=== PATIENT | female | born 1965 | race Caucasian/White ===

== ENCOUNTER 2016-05-13 05:31 | Day surgery (SDC) | payer MEDICAID ==
[2016-05-11 09:57] LABS: HEMATOCRIT 36.7 % (36.0-48.0); HEMOGLOBIN 12.4 g/dL (12-16); MCH 35.1 pg (26.0-34.0); MCHC 33.8 g/dL (31.0-37.0); MEAN PLATELET VOLUME 8.9 fL (7.4-10.4); RBC 3.53 10x6/uL (4.00-5.40); RDW 13.6 % (11.5-14.5); WBC 13.3 10x3/uL (4.8-10.8)
[2016-05-11 10:12] LABS: CALC OSMOLALITY 257 mosm/kg (275-300); CALCIUM 9.4 mg/dL (8.5-10.1); CARBON DIOXIDE 29.1 mmol/L (21.0-32.0); CHLORIDE - SERUM 95 mmol/L (98-107); CREATININE - SERUM 0.8 mg/dL (0.6-1.3); GLUCOSE 88 mg/dL (74-106); POTASSIUM - SERUM 4.7 mmol/L (3.5-5.1); SODIUM 129 mmol/L (136-145); UREA NITROGEN 12 mg/dL (7-18); eGFR NON AFRICAN AMERICAN 80 mL/min (90-120)
[~2016-05-13] VITALS: Ht 162.6 cm; Wt 59.0 kg
[~2016-05-13 05:31] MED LIST: AMOXICILLIN500 M1 PO; AMPICILLIN 2 GM/2 G1 IV; BACTRIM DS TABL1 TAB PO; COREG 3.1253.125 MG NG; DILAUDID2 MG PO; ELIQUIS2.5 MG PO; HYDROCODONE-APA1 TAB PO; IBUPROFEN800 MG; IBUPROFEN800 MG PO; INVANZ 1 GM/NS 11 G1 IV; MUPIROCIN22 GM TOPICAL; NAPROSYN500 MG PO; OMEPRAZOLE20 M1 PO; RIFADIN300 MG PO; ULTRAM50 MG PO; ZESTRIL10 MG PO; ZOFRAN4 MG PO; ZOFRAN8 MG PO
[2016-05-13 10:40] VITALS: BP 134/81; Ht 162.6 cm; Wt 59.0 kg
[2016-05-13 11:46] LABS: HCG SERUM NEGATIVE (NEGATIVE)
[2016-05-13] MEDS ORDERED: HYDROCODONE-APA1 TAB PO (14:39)
--- NOTE | 2016-05-13 14:45 | NUR ---
1G VANCOMYCIN INFUSING UPON ARRIVAL TO PACU
--- NOTE | 2016-05-13 16:20 | NUR ---
IV REMOVED WITH TIP INTACT. DISCHARGE INSTRUCTIONS AND RX GIVEN, VOICED UNDERSTANDING. DISCHARGED HOME VIA WC.
--- NOTE | 2016-05-17 18:23 | OP ---
PATIENT NAME: ANNA MARIE HERRERA MEDICAL RECORD: [id number] :61 LOCATION:D.OPS ADMISSION DATE: SURGEON: KATHRYN WYA MD DATE OF OPERATION: 05/13/2016 PREOPERATIVE DIAGNOSIS: Symptomatic hardware of the right clavicle. POSTOPERATIVE DIAGNOSIS: Symptomatic hardware of the right clavicle. PROCEDURE: Removal of symptomatic hardware of the right clavicle. SURGEON: Kathrny Way MD ANESTHESIA: General. INTRAOPERATIVE COMPLICATIONS: None. SUMMARY OF PATHOLOGIC FINDINGS: Essentially none. The clavicle has healed. OPERATIVE SUMMARY IN DETAIL: After obtaining the appropriate preoperative orthopedic surgery consent as well as anesthetic consultation, evaluation and clearance, the patient was brought to the operating room and placed on the table in supine position. After adequate general laryngeal mask was administered. Bump was placed in the left shoulder. Left shoulder and the area of the clavicle was prepped and draped in routine sterile fashion. Incision was made in line with the old incision, taken down to the level of the hardware. This patient had extremely thin skin. Hardware was exposed, screws were serial and sequentially removed followed by removal of the plate. The clavicle was palpated and found to be intact completely. Wound was irrigated and closed with 2-0 Vicryl followed by a running 4-0 Prolene. Sterile dressings were applied. The patient was awakened and taken to the recovery room in stable condition. All final needle and sponge counts were correct. TRANSINT:[id number] Voice Confirmation ID: [id number] DOCUMENT ID: [id number] KATHRYN WAY MD at 1823 CC: [id number] DICTATION DATE: 05/13/16 1433 PORCELAIN MIXER: 05/13/16 1644 [facility] 05/13/16 [place] [id number] [place] [id number]
[2016-06-23] MEDS ORDERED: HYSINGLA ER20 MG PO (12:59)
[2016-06-23] MEDS ORDERED: VIBRAMYCIN 100100 MG PO (13:19)
== END 2016-05-13 16:20 | disposition home or self-care (01) ==
LOC: D.OPS 05:31 → D.PAN 12:30 → D.OPS 15:15
PROVIDERS: Anesthesiology
DX: T84.84XA Pain due to internal orthopedic prosthetic devices, implants and grafts, initial encounter (principal); F17.200 Nicotine dependence, unspecified, uncomplicated; I10 Essential (primary) hypertension; J44.9 Chronic obstructive pulmonary disease, unspecified; K21.9 Gastro-esophageal reflux disease without esophagitis

== ENCOUNTER 2016-06-24 06:25 | Day surgery (SDC) | payer MEDICAID ==
[2016-06-23 13:47] LABS: HEMATOCRIT 35.4 % (36.0-48.0); MCH 34.8 pg (26.0-34.0); MCHC 33.9 g/dL (31.0-37.0); MCV 102.6 fL (80.0-100.0); MEAN PLATELET VOLUME 10.2 fL (7.4-10.4); RBC 3.45 10x6/uL (4.00-5.40); WBC 6.8 10x3/uL (4.8-10.8)
[2016-06-23 14:12] LABS: CALC OSMOLALITY 261 mosm/kg (275-300); CALCIUM 9.3 mg/dL (8.5-10.1); CARBON DIOXIDE 23.4 mmol/L (21.0-32.0); CHLORIDE - SERUM 100 mmol/L (98-107); CREATININE - SERUM 0.5 mg/dL (0.6-1.3); GLUCOSE 99 mg/dL (74-106); POTASSIUM - SERUM 5.1 mmol/L (3.5-5.1); SODIUM 132 mmol/L (136-145); UREA NITROGEN 4 mg/dL (7-18); eGFR NON AFRICAN AMERICAN > 90 mL/min (90-120)
[~2016-06-24] VITALS: Ht 162.6 cm; Wt 58.1 kg
[~2016-06-24 06:25] MED LIST changes: +HYSINGLA ER20 MG PO; +VIBRAMYCIN 100100 MG PO
[2016-06-24 07:21] VITALS: BP 132/78; Ht 162.6 cm; Wt 58.1 kg
--- NOTE | 2016-06-24 09:45 | NUR ---
HX OF BLOOD CLOTS NO SCD USED
--- NOTE | 2016-06-24 10:07 | NUR ---
DR. YUSUF SCRUBS IN
--- NOTE | 2016-06-24 10:19 | NUR ---
PARAMJIT SRUBS OUT
[2016-06-24] MEDS ORDERED: PERCOCET 10/3251 TA1 PO (10:38)
--- NOTE | 2016-06-24 13:43 | NUR ---
IV DC WITH CATHER TIP INTACT
--- NOTE | 2016-06-27 11:01 | OP ---
PATIENT NAME: ANNA MARIE HERRERA MEDICAL RECORD: [id number] :61 LOCATION:[facility] ADMISSION DATE: SURGEON: KATHRYN WAY MD DATE OF OPERATION: 06/24/2016 PREOPERATIVE DIAGNOSIS: Chronic nonunion of the right clavicle, symptomatic, status post operative intervention times 5. POSTOPERATIVE DIAGNOSIS: Chronic nonunion of the right clavicle, symptomatic, status post operative intervention times 5. PROCEDURE: Claviculectomy, right. SURGEON: Kathryn Way MD. BUSINESS PRACTICES SUPERVISOR: Cheng Interiano MD. INTRAOPERATIVE COMPLICATIONS: Sidewall injury to the subclavian vein fixed by Dr. Interiano. ESTIMATED BLOOD LOSS: 200 cc. OPERATIVE SUMMARY IN DETAIL: After obtaining the appropriate preoperative orthopedic surgery consent as well as anesthetic consultation, evaluation and clearance, the patient was brought to the operating room and placed on the operating table in supine position. After general laryngeal mask was administered, the patient was placed in a beach chair position. All pressure points were well padded to include down leg peroneal pad as well as axillary roll. She was held firmly to the operating table using the vacuum pack suction system. Right upper extremity and shoulder were prepped and draped in routine sterile fashion. Previously utilized incision was taken down to reveal the refractured nonunited collarbone that had refractured and that had 2 places that were nonhealed, one appeared to be a refracture and as per our conversation, after multiple operations and a very painful collarbone, it was felt that a claviculectomy was the best. Distal side was dissected out first with little degree of difficulty as was a center portion. Dissection was then carried medially where there were copious amounts of scar tissue. At the medial one-third lateral two-thirds junction, a small sidewall tear was made in the subclavius. Pressure was held here to stop bleeding while the dissection was carried down to just lateral to the sternoclavicular joint, the clavicle was excised at this point for appropriate exposure of the sidewall tear of the subclavius. At this point, Dr. Interiano came in and did a 7-0 running repair for tight seal and the subclavius continued to have good flow. The wound at this point was copiously irrigated and closed in layers with #1 Vicryl to close the platysma, followed 2-0 Vicryl and skin ryan. Sterile dressings were applied. The patient was awakened, taken to recovery room in stable condition. All final needle and sponge counts were correct. TRANSINT:[id number] Voice Confirmation ID: [id number] DOCUMENT ID: [id number] OPERATIVE REPORT [id number] ANNA MARIE HERRERA MD, KATHRYN MORRIS at 1101 CC: [id number] DICTATION DATE: 06/24/16 1041 OPERATIONS OFFICER TRUST DEPARTMENT: 06/24/16 1338 [facility] 06/24/[address] [address]
== END 2016-06-24 14:00 | disposition home or self-care (01) ==
LOC: D.OPS 06:25 → D.PAN 09:00 → D.OPS 12:30 → D.PAN 12:30 → D.OPS 14:00
PROVIDERS: Anesthesiology
DX: M84.411A Pathological fracture, right shoulder, initial encounter for fracture (principal); F17.200 Nicotine dependence, unspecified, uncomplicated; J44.9 Chronic obstructive pulmonary disease, unspecified; K76.0 Fatty (change of) liver, not elsewhere classified; I10 Essential (primary) hypertension; M19.90 Unspecified osteoarthritis, unspecified site; I97.51 Accidental puncture and laceration of a circulatory system organ or structure during a circulatory system procedure; Y65.8 Other specified misadventures during surgical and medical care

== ENCOUNTER 2016-07-03 19:13 | Inpatient (IN) | payer MEDICAID ==
[~2016-07-03] VITALS: Ht 162.6 cm; Wt 59.0 kg
[~2016-07-03 19:13] MED LIST changes: +PERCOCET 10/3251 TA1 PO
[2016-07-03 19:59] LABS: BASOPHILS 0.3 % (0.0-2.0); EOSINOPHILS 2.6 % (0-7); HEMATOCRIT 34.6 % (36.0-48.0); HEMOGLOBIN 11.8 g/dL (12-16); IMMATURE GRANULOCYTES 0.3 % (0-5); LYMPHOCYTES 23.5 % (15-50); MCH 34.8 pg (26.0-34.0); MCHC 34.1 g/dL (31.0-37.0); MCV 102.1 fL (80.0-100.0); MONOCYTES 11.5 % (2-11); NEUTROPHILS 61.8 % (40-80); PLATELET COUNT 282 10x3/uL (130-400); RBC 3.39 10x6/uL (4.00-5.40)
[2016-07-03 20:17] LABS: ALBUMIN 3.5 g/dL (3.4-5.0); ALKALINE PHOSPHATASE 139 U/L (46-116); ALT (SGPT) 22 U/L (10-68); BILIRUBIN - TOTAL 0.26 mg/dL (0.2-1.3); CALC OSMOLALITY 252 mosm/kg (275-300); CALCIUM 8.6 mg/dL (8.5-10.1); CARBON DIOXIDE 23.3 mmol/L (21.0-32.0); CHLORIDE - SERUM 95 mmol/L (98-107); CREATININE - SERUM 0.6 mg/dL (0.6-1.3); GLUCOSE 79 mg/dL (74-106); POTASSIUM - SERUM 4.7 mmol/L (3.5-5.1); PROTEIN - SERUM 6.4 g/dL (6.4-8.2); SODIUM 128 mmol/L (136-145); UREA NITROGEN 4 mg/dL (7-18); eGFR NON AFRICAN AMERICAN > 90 mL/min (90-120)
[2016-07-04 03:08] VITALS: BP 110/71; Ht 162.6 cm; Wt 59.0 kg
[2016-07-04 05:40] VITALS: BP 95/52
--- NOTE | 2016-07-04 07:05 | NUR ---
PT REC'D FROM [facility]. RESTING IN BED. AAOX4. RATING CURRENT PAIN R SHOULDER 10/25. DILAUDID TRAVEL AGENCY MANAGER INFUSING. REMINDED PT TO USE PAIN CONTROL BUTTON. DRESSING TO R SHOULDER SHOWING MODERATE AMOUNT OF SANGUINOUS DRAINAGE. WILL CHANGE. SPOKE WITH ABIGAIL RN AND DAUGHTER, ABOUT DRESSING CHANGES. SHE STATES THEY SHOULD BE WET TO DRY DRESSING CHANGES. WILL DO SO. BED LOW, CALL LIGHT IN REACH, DENIES NEEDS. CPOC.
--- NOTE | 2016-07-04 07:45 | NUR ---
PATIENT ALERT IN HIGH PAEZ POSITION. RESPIRATIONS EVEN AND UNLABORED. PRIMARY NURSE KVNG WARD AT BEDSIDE. SIDE RAILS UP X2. BED IN LOW POSITION. CALL LIGHT IN REACH.
[2016-07-04 08:06] VITALS: BP 110/72
--- NOTE | 2016-07-04 09:39 | NUR ---
DRESSING TO R SHOULDER CHANGED. WET TO DRY DRESSING APPLIED. SECURED WITH METAPORE TAPE. MODERATE AMOUNT OF SANGUINOUS DRAINAGE TO OLD DRESSING. BED LOW, CALL LIGHT IN REACH, DENIES NEEDS. CPOC.
[2016-07-04 12:40] VITALS: BP 121/78
--- NOTE | 2016-07-04 14:30 | NUR ---
PT REQUESTING TO GO FOR A WALK. TOLD PT SHE WOULD HAVE TO BE UNHOOKED IF SHE WANTED TO LEAVE THE FLOOR DUE TO HER TICKET MARKER. PT STATES SHE UNDERSTAND. NO COMPLAINTS UP AMBULATING THROUGH HALLS W/O ASSISTANCE.
[2016-07-04 16:02] VITALS: BP 123/77
[2016-07-04 19:00] VITALS: BP 149/93
--- NOTE | 2016-07-04 20:00 | NUR ---
ASSESSMENT PER FLOWSHEET. DRESSING TO RT SHOULDER WOUND C/D/I. IF PATENT LEFT ARM OF NS AT 125CC'S/HR SITE CLEAR. AUTOMOTIVE PARTS PERSON OF DILAUDID IN USE WITH SETTING AT 0.2MG Q10MIN W/4MG Q4H L/O. PT REQUESTING TO BE DISCONNECTED FROM IV FLUIDS SO SHE CAN WALK IN HALLS. IV PLACED ON DELAY.
--- NOTE | 2016-07-04 20:30 | NUR ---
PT RETURNS TO ROOM IV FLUIDS CONNECTED. UP AD DEMOND TO BR VOIDS WELL.
--- NOTE | 2016-07-04 22:00 | NUR ---
PT REQUESTING NICOTINE PATCH. NOTIFIED WIRE STRANDER TO COME PULL MED.
[2016-07-05] VITALS (14 sets, daily range): BP systolic 104–161; BP diastolic 54–98
--- NOTE | 2016-07-05 | NUR ---
TIRSO RN HERE TO PULL NICOTINE SMOKE PATCH. MEDS GIVEN PER JUN. PATIENT REMAINS AWAKE AND ALERT. SLEEPS FOR SHORT PERIODS OF TIME.
--- NOTE | 2016-07-05 02:34 | NUR ---
AWAKE ALERT WATCHING TV.
--- NOTE | 2016-07-05 07:46 | NUR ---
PT SEEN AND ASSESSED. OLIVIA AND INCISION NOTED TO RIGHT CLAVIVLE/SHOULDER REGION. OLIVIA INTACT AND INCISION REDDENED. CURRENTLY NPO FOR SURGERY TODAY-CONSENTS SIGNED. USING OPS MANAGER FOR PAIN CONTROL. CALL LIGHT IN REACH
[2016-07-05] MEDS ORDERED: ZOFRAN ODT4 MG/UDTAB PO (10:26)
[2016-07-05 12:23] LABS: BASOPHILS 0.6 % (0.0-2.0); EOSINOPHILS 5.9 % (0-7); HEMATOCRIT 32.4 % (36.0-48.0); HEMOGLOBIN 10.7 g/dL (12-16); IMMATURE GRANULOCYTES 0.1 % (0-5); LYMPHOCYTES 32.4 % (15-50); MCH 34.4 pg (26.0-34.0); MEAN PLATELET VOLUME 9.4 fL (7.4-10.4); MONOCYTES 10.6 % (2-11); NEUTROPHILS 50.4 % (40-80); PLATELET COUNT 259 10x3/uL (130-400); RBC 3.11 10x6/uL (4.00-5.40); RDW 13.1 % (11.5-14.5)
[2016-07-05 12:24] LABS: MCV 104.2 fL (80.0-100.0); WBC 6.8 10x3/uL (4.8-10.8)
[2016-07-05 12:36] LABS: ALKALINE PHOSPHATASE 135 U/L (46-116); ALT (SGPT) 18 U/L (10-68); CALC OSMOLALITY 270 mosm/kg (275-300); CALCIUM 9.3 mg/dL (8.5-10.1); CARBON DIOXIDE 28.9 mmol/L (21.0-32.0); CHLORIDE - SERUM 103 mmol/L (98-107); CREATININE - SERUM 0.6 mg/dL (0.6-1.3); GLUCOSE 92 mg/dL (74-106); POTASSIUM - SERUM 4.5 mmol/L (3.5-5.1); PROTEIN - SERUM 6.5 g/dL (6.4-8.2); SODIUM 137 mmol/L (136-145); UREA NITROGEN 3 mg/dL (7-18); eGFR NON AFRICAN AMERICAN > 90 mL/min (90-120)
--- NOTE | 2016-07-05 17:56 | NUR ---
TO SURG PER BED. FAMILY AT BEDSIDE.
--- NOTE | 2016-07-05 18:51 | NUR ---
WOUND VAC PLACED TO CLAVICLE
--- NOTE | 2016-07-05 19:30 | NUR ---
REC'D TO ROOM FROM PACU POST OP WOUND VAC PLACEMENT TO WOUND RT SHOULDER AREA. IV PATENT LEFT HAND OF NS AT 125CC'S/HR SITE CLEAR RESUMED EXPENSE ANALYST OF DILAUDID WITH SETTINGS AT 0.2MG Q10MIN W/4MG Q4H L/O. FAMILY MEMBERS IN ROOM. MONITORING VS POST OP. SITTING UPRIGHT IN BED WANTS FOOD AND DRINK. SANDWICH TRAY SERVED WITH A DRINK.
--- NOTE | 2016-07-05 22:00 | NUR ---
MEDS GIVEN PER MAR. PT UP AD DEMOND TO BR VOIDS. RETURNS TO BED SR UP X2 CALL LIGHT WITHIN REACH.
[2016-07-06] VITALS (7 sets, daily range): BP systolic 111–164; BP diastolic 54–92
--- NOTE | 2016-07-06 | NUR ---
EYES CLOSED RESPIRATIONS WITH EASE AND UNLABORED.
--- NOTE | 2016-07-06 04:00 | NUR ---
RESTING QUIETLY DENIES NEEDS.
--- NOTE | 2016-07-06 07:15 | NUR ---
REPORT RECEIVED FROM COREMAKER EXPERIMENTAL NURSE. CALL LIGHT IN REACH.
--- NOTE | 2016-07-06 09:05 | NUR ---
ASSESSMENT COMPLETED. CALL LIGHT IN REACH. WILL CONTINUE WITH PLAN OF CARE.
--- NOTE | 2016-07-06 11:01 | NUR ---
AM MEDS ADMINISTERED. HELD BP MEDS D/T BP OF 111/54. CALL LIGHT IN REACH. PASSWORD OBTAINED.
--- NOTE | 2016-07-06 13:00 | NUR ---
NO NEEDS VOICED AT THIS TIME. CALL LIGHT IN REACH.
--- NOTE | 2016-07-06 15:00 | NUR ---
WATCHING TV AT THIS TIME. DENIES NEEDS. CALL LIGHT IN REACH.
--- NOTE | 2016-07-06 17:08 | NUR ---
IV VANC AND PEPCID GIVEN. CALL LIGHT IN REACH.
--- NOTE | 2016-07-06 18:00 | NUR ---
PATIENT IS IN BED, SITTING UP. RESPIRATIONS ARE EVEN AND UNLABORED ON ROOM AIR. PATIENT DENIES NEEDS. BED IN LOWEST POSITION, CALL LIGHT IN REACH. BED RAILS UP X'S 2.
--- NOTE | 2016-07-06 19:56 | NUR ---
NO CHANGES IN INITIAL ASSESSMENT. CALL LIGHT IN REACH. WILL CONTINUE WITH PLAN OF CARE.
--- NOTE | 2016-07-06 20:00 | NUR ---
ASSESSMENT PER FLOWSHEET. IV DISCONNECTED AT PT'S REQUEST. WOUND VAC IN PLACE TO RT UPPER SHOULDER AREA PLACED IN WC FOR PT TO AMBULATE IN HALLWAYS. IV PATENT LEFT HAND OF NS AT 125CC'S/HR.
--- NOTE | 2016-07-06 21:00 | NUR ---
RETURNS TO ROOM RECONNECTED TO IV FLUIDS AND MARINE RIGGER. OF DILAUDID WITH SETTINGS AT 0.2MG Q10MIN W/4MG Q4H L/O.
--- NOTE | 2016-07-06 23:36 | NUR ---
EYES CLOSED RESPIRATIONS WITH EASE AND UNLABORED.
[2016-07-07] VITALS: BP 139/87
--- NOTE | 2016-07-07 01:30 | NUR ---
AWAKE UP TO BR VOIDS WELL THEN BACK TO BED.
--- NOTE | 2016-07-07 02:55 | NUR ---
EYES CLOSEDRESPIRATIONS WITH EASE AND UNLAORED.
[2016-07-07 04:00] VITALS: BP 143/90
--- NOTE | 2016-07-07 05:45 | NUR ---
RESTING QUIETLY MEDS GIVEN PER JUN.
--- NOTE | 2016-07-07 06:03 | NUR ---
NO CHANGES IN ASSESSMENT.
--- NOTE | 2016-07-07 07:15 | NUR ---
AWAKE ALERT COLOR ADQ SKIN WARM AND DRY RESP EVEN AND UNLABORED AT PRESENT.P[A IN PLACE AT PRESENT.
--- NOTE | 2016-07-07 09:00 | NUR ---
MEDS GIVEN CHACHO WELL AT PRESENT ASSISTANT REAL ESTATE MANAGER IN PLACE N/C.
[2016-07-07 09:09] VITALS: BP 181/100
--- NOTE | 2016-07-07 11:00 | NUR ---
WATCHING TV QUIETLY AT PRESENT SPECIAL MACHINE STITCHER IN PLACE.
--- NOTE | 2016-07-07 13:00 | NUR ---
UP IN W/C AT PRESENT WITH FRIENDS AT PRESENT.
[2016-07-07 13:06] VITALS: BP 153/98
--- NOTE | 2016-07-07 15:00 | NUR ---
WATCHING TV QUIETLY AT PRESENT DENIES ANY NEEDS AT PRESENT.
[2016-07-07 16:32] VITALS: BP 143/81
--- NOTE | 2016-07-07 17:00 | NUR ---
WATCHING TV QUIETLY AT PRESENT.
--- NOTE | 2016-07-07 18:34 | NUR ---
PT OUTSIDE DOWNSTAIRS AT PRESENT.
--- NOTE | 2016-07-07 19:00 | NUR ---
BEDSIDE REPORT RECEIVED AND CARE OF PT ASSUMED. PT LYING IN SEMI PAEZ'S POSITION WATCHING TV. WOUND VAC ON RIGHT SHOULDER WELL COMPRESSED WITH NO LEAKAGE ALARMS. IV IN LEFT HAND PATENT WITH NS INFUSING AT 100 ML / HR. WILL MONITOR CLOSELY FOR NEEDS.
--- NOTE | 2016-07-07 20:30 | NUR ---
PT CONSENTED FOR AM PROCEDURE AND WITNESSED.
--- NOTE | 2016-07-07 22:03 | NUR ---
HS MEDICATIONS GIVEN. SENIOR MATERIALS SCIENTIST / DILAUDID IN USE FOR PAIN CONTROL. WILL CONTINUE TO MONITOR FOR NEEDS.
[2016-07-07 23:00] VITALS: BP 117/77
--- NOTE | 2016-07-08 | NUR ---
NPO STATUS BEGINS NOW...ALL CUPS / DRINKS REMOVED FROM BEDSIDE TABLE.
--- NOTE | 2016-07-08 00:35 | NUR ---
IV IN LEFT HAND BURNING. REMOVED WITH CATHETER TIP INTACT AND RE-SITED IN LEFT FOR ARM USING 20 GUAGE CATHETER IN ONE STICK. IV FLUIDS AND SECTION GANG WORKER RE-STARTED.
[2016-07-08 04:00] VITALS: BP 126/75
--- NOTE | 2016-07-08 04:17 | NUR ---
PT RESTING QUIETLY IN SUPINE POSITION WITH UNLABORED BREATHING. WILL CONTINUE TO MONITOR FOR NEEDS.
[2016-07-08 05:49] LABS: HEMATOCRIT 29.7 % (36.0-48.0); HEMOGLOBIN 9.8 g/dL (12-16); MCH 34.1 pg (26.0-34.0); MCV 103.5 fL (80.0-100.0); MEAN PLATELET VOLUME 9.9 fL (7.4-10.4); RBC 2.87 10x6/uL (4.00-5.40); RDW 12.7 % (11.5-14.5); WBC 6.4 10x3/uL (4.8-10.8)
[2016-07-08 06:03] LABS: CALC OSMOLALITY 270 mosm/kg (275-300); CALCIUM 8.8 mg/dL (8.5-10.1); CARBON DIOXIDE 25.9 mmol/L (21.0-32.0); CHLORIDE - SERUM 104 mmol/L (98-107); CREATININE - SERUM 0.6 mg/dL (0.6-1.3); GLUCOSE 92 mg/dL (74-106); POTASSIUM - SERUM 4.3 mmol/L (3.5-5.1); SODIUM 137 mmol/L (136-145); UREA NITROGEN 4 mg/dL (7-18); eGFR NON AFRICAN AMERICAN > 90 mL/min (90-120)
[2016-07-08 08:46] VITALS: BP 109/73
--- NOTE | 2016-07-08 09:00 | NUR ---
ASSESSMENT PER FLOW SHEET.PT WITHOUT DISTRESS.NPO FOR SURGERY
[2016-07-08 11:30] VITALS: BP 143/92
--- NOTE | 2016-07-08 11:42 | NUR ---
TO OR VIA BED.
[2016-07-08 13:04] VITALS: BP 140/81
--- NOTE | 2016-07-08 13:05 | NUR ---
BACK FROM OR VIA BED.WOUND VAC RIGHT SHOULDER IN PLACE AND FUNCTIONING.PT AWAKE AND ALERT.PAIN CONTROLLED.LUNCH TRAY SERVRED.CALL LIGHT IN REACH.VSS
[2016-07-08 16:03] VITALS: BP 129/80
--- NOTE | 2016-07-08 16:08 | NUR ---
* Is the patient Alert and Oriented? Yes 0 * How many steps to enter\exit or inside your home? 2 0 * PCP Dr. Johnson 0 * Pharmacy [facility] 0 * Preadmission Environment Home with Family 0 * ADLs Independent 0 * List name and contact numbers for known caregivers / representatives who currently or will assist patient after discharge: Daughter - Patricia Galvan [phone] 0 * Additional services required to return to the preadmission environment? Yes 0 * Can the patient safely return to the preadmission environment? Yes 0 * Has this patient been hospitalized within the prior 30 days at any hospital? No 07/08/2016 16:08 DCP: Discharge Planning Patient Name: ANNA MARIE HERRERA Admission Status: ER Accout number: [id number] Admission Date: 07-04-2016 : 1965 Admission Diagnosis:DISRUPTION OF EXTERNAL OPERATION (SURGICAL) WOUND, NEC, Attending: VERITO Current LOS: 4 Anticipated DC Date: 07-09-2016 Planned Disposition: Home Primary Insurance: [facility] [employer] [facility] Discharge Planning Comments: Patient lives at home with her family. She is independent with all ADL's & IADL's. At dc, she will return home with her family. Order rec'd for home wound vac - order faxed and called to [facility] with I. POC discussed with Dr. Granger - he will change the wound vac in the clinic - he does not want home health changing it. Anticipate dc tomorrow if wound vac approved. CM will follow. Corsets Salesperson: Archana Ring
--- NOTE | 2016-07-08 17:42 | NUR ---
PAIN CONTROLLED.WITHOUT CHANGE.CONT PLAN OF CARE
[2016-07-08 20:00] VITALS: BP 142/83
--- NOTE | 2016-07-08 23:00 | NUR ---
ASSESSED AT THE BEGINNING OF THE SHIFT. SHE IS ALERT AND ORIENTED, ABLE TO VERBALIZE NEEDS. SHE IS SITTING UP IN THE CHAIR ALOT AND AT ONE POINT PLACED HER WOUND VAC IN A W/C AND WENT OUTSIDE FOR A WHILE. THE WOUND VAC IS CONNECTED TO HER RIGHT SHOULDR AND LOOKS GOOD. SHE HAS A DILAUDID FINAL OPERATIONS TECHNICIAN FOR PAIN CONTROL AND IS DOING WELL. THE BED IS LOW, RAILS UP X'S 2 WITH THE CALL LIGHT AT HAND.
[2016-07-09] VITALS: BP 109/56
[2016-07-09 04:00] VITALS: BP 124/72
[2016-07-09 07:50] VITALS: BP 147/91
--- NOTE | 2016-07-09 07:56 | NUR ---
AWAKE AND ALERT. ORIENTED X3. NO C/O AT THIS TIME. UP AT SINK PERFORMING ADL'S. LUNGS ARE CLEAR BILATERALLY, NO COUGH NOTED. SKIN IS INTACT WITHOUT REDNESS EXCEPT WOUND TO RIGHT SHOULDER WHICH HAS A WOUND VAC IN PLACE WITH SCANT DRAINAGE. IV TI RIGHT FOREARM IS PATENT WITHOUT REDNESS AT ISNERTION SITE. DENIES NEEDS. REPORTS NO BM SINCE LAST TUESDAY. WILL GET PRN MED FOR THIS.
[2016-07-09] MEDS ORDERED: VIBRAMYCIN 100100 MG PO (09:04)
--- NOTE | 2016-07-09 09:56 | NUR ---
07/09/2016 9:55 DCP: Discharge Planning [facility] Vac order signed and faxed back to [facility]. Waiting on release. Anticipate dc later this afternoon.
--- NOTE | 2016-07-09 10:00 | NUR ---
AMBULATED IN HALLWAY PER SELF. DENIES NEEDS.
--- NOTE | 2016-07-09 12:30 | NUR ---
LUNCH SERVED IN ROOM. FEEDS SELF. DENIES NEEDS.
[2016-07-09 13:01] VITALS: BP 156/85
[2016-07-09 15:34] VITALS: BP 136/94
--- NOTE | 2016-07-09 16:00 | NUR ---
RESTING QUIETLY IN ROOM. NO CHANGES NOTED.
[2016-07-09] MEDS ORDERED: NICODERM C1 PATCH .3 TRANSDERM ×2 (16:07→16:11)
--- NOTE | 2016-07-09 17:10 | NUR ---
LEFT UNIT AMBULATORY FOR TRANSPORT HOME
--- NOTE | 2016-07-12 13:10 | OP ---
PATIENT NAME: ANNA MARIE HERRERA MEDICAL RECORD: [id number] :61 LOCATION:D.MS [facility] ADMISSION DATE:07/04/16 SURGEON: KATHRYN WAY MD DATE OF OPERATION: 07/05/2016 Orthopedic Surgery Operative Note PREOPERATIVE DIAGNOSIS: Postoperative hematoma, right clavicular wound status post clavicle excision. POSTOPERATIVE DIAGNOSIS: Postoperative hematoma, right clavicular wound status post clavicle excision. PROCEDURES: 1. Irrigation and debridement of the right clavicular wound to include skin, subcutaneous tissue, portions of fat and fascia -- greater than 20 cm. 2. Application of wound VAC. SURGEON: Kathryn Way MD ANESTHESIA: General. INTRAOPERATIVE COMPLICATIONS: None. SUMMARY OF PATHOLOGIC FINDINGS: A substantial undermining was noted after the essential middle half of the ryan were removed. This was filled with hematoma, did not appear to be grossly infected. OPERATIVE SUMMARY IN DETAIL: After obtaining the appropriate preoperative orthopedic surgery consents as well as anesthetic consultation, evaluation and clearance, the patient was brought to the operating room and placed on the operating table in supine position. After general laryngeal mask was administered, the patient was placed in the beach chair position. All pressure points were well padded. She was held firmly to the operating table using the vacuum pack suction system. The entire area of the right upper quadrant was prepped and draped in routine sterile fashion. Chappell were removed and the entire wound was probed, it measured approximately 20 cm x 3 cm x 1.5 cm deep, no undermining. Very gentle debridement was carried out, mostly with Ray-Shawn and a suction tip to avoid injury to subclavian vein. At this point, the wound bed was covered with white nonadherent foam from the wound VAC system. A smaller black foam wound VAC was then placed over this. This was then affixed using wound VAC covering. The wound VAC was then attached and 125 mL continuous medium intensity. Having completed this and noting good seal, the patient was awakened, taken to recovery room in stable condition. All final needle and sponge counts were correct. TRANSINT:[id number] Voice Confirmation ID: [id number] DOCUMENT ID: [id number] OPERATIVE REPORT [id number] SHARON,ANNA MARIE WAY MD, KATHRYN MORRIS at 1310 CC: [id number] DICTATION DATE: 07/08/1651 MARKER ASSEMBLER: 07/08/16 1017 DIS IN 07/09/16 [facility] [address] [facility] [place], [facility]
--- NOTE | 2016-07-22 12:07 | OP ---
PATIENT NAME: ANNA MARIE HERRERA MEDICAL RECORD: [id number] :61 LOCATION:D.MS [facility] ADMISSION DATE:07/04/16 SURGEON: KATHRYN WAY MD DATE OF OPERATION: 07/08/2016 PREOPERATIVE DIAGNOSES: Open wound of the right shoulder, status post right claviculectomy. POSTOPERATIVE DIAGNOSES: Open wound of the right shoulder, status post right claviculectomy. PROCEDURES: 1. Excisional debridement of the wound to include skin, subcutaneous tissue, portions of fat and fascia greater than 20 cm. 2. Application of wound VAC. SURGEON: Kathryn Way MD. ANESTHESIA: General. INTRAOPERATIVE COMPLICATIONS: None. SUMMARY OF PATHOLOGIC FINDINGS: The wound has gotten extremely better and in the course of last few days while she has had the previous wound VAC on. Measurements today were 10.5 x 2.5 x 0.8. OPERATIVE SUMMARY IN DETAIL: After obtaining the appropriate preoperative orthopedic surgery consent as well as anesthetic consultation, evaluation and clearance, the patient was brought to the operating room and placed on the operating table in supine position. After general laryngeal mask was administered, the patient was placed in the beach chair position. All pressure points were well padded. The wound VAC was gently removed. The area was prepped and draped in a routine sterile fashion. Please note that the white portion of the wound VAC was removed gently by me as to avoid any vascular damage. Serial and sequential curettage as well as sharp debridement was performed to take down any nonviable-appearing tissue. At this point, the white sponge for the wound VAC system was cut to the size, just slightly larger than the black that was placed over it. Wound VAC system was then put into place, suction was 125 continuous intermediate with good seal. Having completed this, the patient was awakened, taken to recovery room in stable condition. All final needle and sponge counts were correct. TRANSINT:[id number] Voice Confirmation ID: [id number] DOCUMENT ID: [id number] RAYNA RANKIN, KATHRYN MORRIS at 1207 CC: [id number] DICTATION DATE: 07/22/16915 CODING COORDINATOR: 07/22/16 1051 DIS IN 07/09/16 [place] [id number] [place] [address]
== END 2016-07-09 17:11 | disposition home or self-care (01) | DRG 908 ==
LOC: D.ER 19:13 → D.MS 07-04 01:18
PROVIDERS: Surgery; ADMIT Orthopaedic Surgery
PROC: 0JD63ZZ Extraction of Chest Subcutaneous Tissue and Fascia, Percutaneous Approach (ICD-10-PCS; principal; 2016-07-05 14:30)
PROC: 0JD63ZZ Extraction of Chest Subcutaneous Tissue and Fascia, Percutaneous Approach (ICD-10-PCS; 2016-07-08 14:30)
DX: T81.31XA Disruption of external operation (surgical) wound, not elsewhere classified, initial encounter (principal); M96.840 Postprocedural hematoma of a musculoskeletal structure following a musculoskeletal system procedure; F17.200 Nicotine dependence, unspecified, uncomplicated; Y83.8 Other surgical procedures as the cause of abnormal reaction of the patient, or of later complication, without mention of misadventure at the time of the procedure

== ENCOUNTER 2016-09-14 12:26 | Emergency (ER) | payer MEDICAID ==
[2016-07-04 03:08] VITALS: BMI 22.2
[~2016-09-14 12:26] MED LIST changes: +NICODERM C1 PATCH .3 TRANSDERM; +ZOFRAN ODT4 MG/UDTAB PO
[2016-09-14 13:19] LABS: BASOPHILS 0.3 % (0-2); EOSINOPHILS 0.8 % (0-7); HEMATOCRIT 37.3 % (36.0-48.0); HEMOGLOBIN 12.7 g/dL (12-16); IMMATURE GRANULOCYTES 0.3 % (0-5); LYMPHOCYTES 26.6 % (15-50); MCH 34.5 pg (26.0-34.0); MCV 101.4 fL (80.0-100.0); MEAN PLATELET VOLUME 9.9 fL (7.4-10.4); MONOCYTES 10.8 % (2-11); NEUTROPHILS 61.2 % (40-80); PLATELET COUNT 256 10x3/uL (130-400); RBC 3.68 10x6/uL (4.00-5.40); RDW 14.8 % (11.5-14.5); WBC 6.6 10x3/uL (4.8-10.8)
[2016-09-14 17:19] LABS: ALKALINE PHOSPHATASE 160 U/L (46-116); ALT (SGPT) 47 U/L (10-68); BILIRUBIN - TOTAL 0.55 mg/dL (0.2-1.3); CALC OSMOLALITY 249 mosm/kg (275-300); CALCIUM 9.7 mg/dL (8.5-10.1); CHLORIDE - SERUM 94 mmol/L (98-107); CREATININE - SERUM 0.7 mg/dL (0.6-1.3); GLUCOSE 97 mg/dL (74-106); POTASSIUM - SERUM 4.6 mmol/L (3.5-5.1); PROTEIN - SERUM 7.7 g/dL (6.4-8.2); SODIUM 126 mmol/L (136-145); UREA NITROGEN 5 mg/dL (7-18); eGFR NON AFRICAN AMERICAN > 90 mL/min (90-120)
== END 2016-09-14 19:30 | disposition home or self-care (01) ==
LOC: D.ER 12:26
PROVIDERS: Emergency Medicine; Nurse Practitioner Family
DX: G89.18 Other acute postprocedural pain (principal); R23.8 Other skin changes; E87.1 Hypo-osmolality and hyponatremia; I10 Essential (primary) hypertension

== ENCOUNTER → 2017-06-27 10:41 | Outpatient (CLI) | payer MEDICAID ==
[2016-07-04 03:08] VITALS: BMI 22.2
== END | disposition home or self-care (01) ==
LOC: D.CT 10:41
DX: R10.11 Right upper quadrant pain (principal)

== ENCOUNTER → 2018-05-04 14:43 | Outpatient (CLI) | payer MEDICAID ==
[2016-07-04 03:08] VITALS: BMI 22.2
== END | disposition home or self-care (01) ==
LOC: D.MRI 05-02 09:00
DX: M54.12 Radiculopathy, cervical region (principal)

== ENCOUNTER → 2018-05-11 09:09 | Outpatient (CLI) | payer MEDICAID ==
[2016-07-04 03:08] VITALS: BMI 22.2
== END | disposition home or self-care (01) ==
LOC: D.MRI 09:09
DX: M25.511 Pain in right shoulder (principal)

== ENCOUNTER → 2018-07-24 08:25 | Outpatient (CLI) | payer MEDICAID ==
[2018-07-24 09:35] LABS: BASOPHILS 0.3 % (0-2); EOSINOPHILS 0.5 % (0-7); HEMATOCRIT 31.9 % (36.0-48.0); HEMOGLOBIN 11.1 g/dL (12-16); IMMATURE GRANULOCYTES 0.2 % (0-5); LYMPHOCYTES 21.8 % (15-50); MCH 31.7 pg (26.0-34.0); MCHC 34.8 g/dL (31.0-37.0); MCV 91.1 fL (80.0-100.0); MEAN PLATELET VOLUME 8.6 fL (7.4-10.4); MONOCYTES 11.8 % (2-11); NEUTROPHILS 65.4 % (40-80); RDW 14.2 % (11.5-14.5); WBC 9.2 10x3/uL (4.8-10.8)
[2018-07-24 09:39] LABS: PLATELET COUNT 413 10x3/uL (130-400)
[2018-07-24 09:45] LABS: INR 0.87 (0.85-1.17); PROTIME 11.3 SECONDS (11.6-15.0)
[2018-07-24 09:50] LABS: ALKALINE PHOSPHATASE 92 U/L (46-116); ALT (SGPT) 23 U/L (10-68); AMYLASE - SERUM 47 U/L (25-115); CALC OSMOLALITY 262 mosm/kg (275-300); CALCIUM 9.3 mg/dL (8.5-10.1); CARBON DIOXIDE 26.3 mmol/L (21.0-32.0); CHLORIDE - SERUM 97 mmol/L (98-107); CREATININE - SERUM 0.6 mg/dL (0.6-1.3); GLUCOSE 107 mg/dL (74-106); LIPASE 121 U/L (73-393); POTASSIUM - SERUM 4.4 mmol/L (3.5-5.1); PROTEIN - SERUM 7.4 g/dL (6.4-8.2); SODIUM 131 mmol/L (136-145); UREA NITROGEN 12 mg/dL (7-18); eGFR NON AFRICAN AMERICAN > 90 mL/min (90-120)
== END | disposition home or self-care (01) ==
LOC: D.US 08:25
PROVIDERS: Internal Medicine Gastroenterology
DX: K22.10 Ulcer of esophagus without bleeding (principal); K44.9 Diaphragmatic hernia without obstruction or gangrene; K29.70 Gastritis, unspecified, without bleeding; K25.3 Acute gastric ulcer without hemorrhage or perforation; K26.3 Acute duodenal ulcer without hemorrhage or perforation

== ENCOUNTER → 2018-11-15 13:48 | Outpatient (CLI) | payer MEDICAID ==
[2016-07-04 03:08] VITALS: BMI 22.2
== END | disposition home or self-care (01) ==
LOC: D.MRI 11-14 13:00
PROVIDERS: ATTEND Clinical Nurse Specialist Family Health
DX: M25.561 Pain in right knee (principal)